=== PATIENT | male | born 1960 | race Caucasian/White ===

== ENCOUNTER 2023-05-12 19:33 | Emergency (ER) | payer OTHER ==
[~2023-05-12] VITALS: Ht 175.3 cm; Wt 61.2 kg
[2023-05-12] MEDS ORDERED: Ketorolac Tromethamine 30mg Vial IM ONE (20:15)
[2023-05-12] MEDS ORDERED: FentaNYL Citrate 50 MCG/ML 2 ML Injection IV ONE (20:40)
[2023-05-12 21:01] VITALS: BP 161/84
[2023-05-12] MEDS ORDERED: Ketorolac Tromethamine 15mg Vial IV ONE (21:05)
== END 2023-05-12 21:10 | disposition home or self-care (01) ==
LOC: ER 19:33
DX: K40.90 Unilateral inguinal hernia, without obstruction or gangrene, not specified as recurrent (principal)
CPT/HCPCS: 99282; J1885; J3010